=== PATIENT | male | born 1980 | race Caucasian/White ===

== ENCOUNTER 2016-06-05 06:37 | Day surgery (SDC) | payer OTHER ==
[2016-06-05] VITALS (10 sets, daily range): BP systolic 103–148; BP diastolic 64–95; PULSE 70–93; RESP 12–21; O2SAT 95–100
[~2016-06-05] VITALS: Ht 188 cm; Wt 127.6 kg
[~2016-06-05 06:37] MED LIST: CeFAZolin Inj 3 GM in IV Premix IV ONE; IBUP800T28 PO; Lactated Ringer's 1,000 ML IV SCH; MULT-1018 PO
[2016-06-05] MEDS ORDERED: MetoCLOpramide 5 mg/mL 2 mL Inj ONE (06:38)
[2016-06-05] MEDS ORDERED: Dexamethasone 4 mg/mL Inj ONE (06:38)
[2016-06-05] MEDS ORDERED: Ondansetron 2 mg/mL 2 mL Inj ONE (06:38)
[2016-06-05] MEDS ORDERED: Propofol 10,000 mCg/mL 20 mL Inj ONE (06:38)
[2016-06-05] MEDS ORDERED: Lactated Ringer's 1,000 ML IV ONE (07:05)
--- NOTE | 2016-06-05 08:15 | PCM.HPANE ---
Patient Data Surgeon Admitting Provider: Attending Provider:Eddie Bell MD Primary Care Physician:Miguelina Other Provider:David Irizarry Anesthesia Reason for Visit Right Knee Lateral Meniscus Tear Ht/WT & BMI Height (Feet): 6 Height (Inches): 2.00 Weight (Kilograms): 127.6 Body Mass Index 36.00 Allergies Coded Allergies: No Known Allergies (Unverified , 06/03/16) Past Anesthesia History Anesthesia History: Denies:: Abnormal Airway, Anesthesia Reactions, Difficult Intubation, Fam Anesthesia Reaction Diabetes History Hx Diabetes?: No MRSA MRSA: No Medications Hypertension Medication: No Home Meds Incl Beta Michelle: No Reported Medications Multivitamin (Multi Vitamin Daily)1 Each Tablet1 Each PO DAILY 30 Days Ref 0 06/03/16 Ibuprofen 800 Mg [id number] Mg PO TID PRN For Pain Ref 0 06/03/16 History HEENT History: Denies:: Abnormal Airway Cataracts Difficult Intubation Dysphagia Glaucoma Hearing Problem Sinus Problem TMJ Cardiovascular History: Denies:: AICD Abdominal Aortic Aneurism Atrial Fibrillation Cardiac Surgery Chest Pain Congestive Heart Failure Coronary Artery Disease Edema Heart Murmur Hypertension Irregular Heartbeat Pacemaker Peripheral Vascular Rheumatic Fever Thrombophlebitis Hx of Respiratory Problem?: No Respiratory History: Denies:: Asthma COPD Emphysema Oxygen Administration Pneumonia Tuberculosis Use of C-PAP Machine Use of Inhalers / NEBS Hx Neurologic Problems?: No Neurological History: Denies:: CVA Dementia Dizziness Headaches Multiple Sclerosis Parkinson's Disease Seizures TIA Hx of GI Problems?: No Gastrointestinal History: Denies:: Cirrhosis Diverticulitis Gall Bladder Disease Gastroesphageal Reflux Gastrointestinal Bleeding Heartburn Hepatitis Hiatal Hernia Liver Disease Rectal Bleeding Hx of Problems?: No Genitourinary History: Denies:: Kidney Stones Urinary Tract Infection Male Hx: Denies:: Prostate Problems Scrotal Mass Testicular Surgery Skin History: Positive for:: History Skin Disorders? (cut on left thumb- scabbed and healing- bad cut ) Denies:: Pressure Ulcers Hx Musculoskeletal Problems?: Yes Musculoskeletal History: Positive for:: Musculoskeletal Trauma (right knee current admission problem) Denies:: Back Injury Degenerative Joint Fibromyalgia Osteoarthritis Rheumatoid Arthritis Hx of Psycho/Social Problems?: No Psycho Social History: Denies:: Anxiety Hx Depression Hx Surgeries?: Yes (hernia as child) Hx Any Other Health Problems?: Yes Other History: Denies:: Cancer Thyroid Disease History Blood Transfusions: Positive for:: Accept Blood Products? Denies:: Blood Transfusions Hx Diabetes: No Hx Alcohol Use: YesAlcoholic Drinks Per Day: one drink dailyHx Substance Use: Yes (marijuana inhalant, daily)Have You Smoked inLast 12 mo: Yes Stop/Bang Treated for Sleep Apnea?: No Do You Have a CPAP Machine?: No S-Snoring: Do You Snore Loudly: No T-Tired: feel tired, fatigued: No O-Obsered: Observed not breath: No P-Blood Pressure: treated: No B- Body Mass Index > 35 kg/m2: Yes A- Age over 50: No N- Neck Large Circumference: No G- Gender Male: Yes NEDA Total Score: 2 NEDA Risk Assessment: Low Risk, <3 Yes Risk Assessment Category Category 1A: Patient has history of documented sleep apnea, and HAS NOT received any narcotic, sedative or anesthesia administration during this stay. Category 1B: Patient has history of documented sleep apnea, and HAS received any narcotic , sedative or anesthesia administration during this stay Category 2: Patient has SUSPECTED Obstructive Sleep Apnea, and HAS received any narcotic , sedative or anesthesia administration during this stay. Category 3: Patient has SUSPECTED Obstructive Sleep Apnea and HAS NOT received narcotic, sedative or anesthesia administration during this stay. Category 4: Outpatient in Procedural Areas with known sleep apnea or who screen positive for High Risk via the STOP/BANG questionnaire. Exam Exam Vital Signs Vital Signs Date Time Temp Pulse Resp B/P Pulse Ox O2 Delivery O2 Flow Rate FiO2 06/05/16 07:12 35.8 77 17 142/74 97 Room Air General Appearance: Oriented X3 HEENT/AIRWAY: MP 2 Lungs: Normal Air Movement Heart: Regular Rate/Rhythm Meds/Labs/Diagnostics Admission Meds Current Medications Lactated Ringer's (Lr) 1,000 ml @ ud STK-MED ONCE IV Last administered on 06/05 07:05; Start 06/05/16 at 07:05; Stop 06/05/16 at 07:06; Status DC Lidocaine HCl (Xylocaine 1% Inj) 20 ml STK-MED ONCE INJ Last administered on 07:50; Start 06/05/16 at 07:50; Stop 06/05/16 at 08:08; Status DC Ropivacaine (Naropin 0.5% Inj) 30 ml STK-MED ONCE INFILTRATE Last administered on 06/05/16t 07:50; Start 06/05/16 at 07:50; Stop 06/05/16 at 08:08; Status DC Plan Impression Patient chart reviewed, patient interviewed and anesthestic plan with risks, benefits, and alternatives discussed, and informed consent obtained. NPO Status: 06/04@2300 ASA Physical Status: ASA2 Mod Systemic Disease Anesthetic Plan: GA Bene/Risks/Altern/Consents: Yes HP Complete Prior to Induction: Yes Crow Yanez MD Jun 05, 2016 08:15
[2016-06-05] MEDS ORDERED: Lactated Ringer's 500 ML IV PRN (08:43)
[2016-06-05] MEDS ORDERED: Lactated Ringer's 1,000 ML IV SCH (08:43)
[2016-06-05] MEDS ORDERED: Ondansetron 2 mg/mL 2 mL Inj IVPUSH PRN (08:45)
[2016-06-05] MEDS ORDERED: Dexamethasone 4 mg/mL Inj IVPUSH PRN (08:45)
[2016-06-05] MEDS ORDERED: HYDROmorphone 1 mg/mL Inj IVPUSH PRN (08:45)
[2016-06-05] MEDS ORDERED: Phenylephrine 10,000 mCg/mL Inj IVPUSH PRN (08:45)
[2016-06-05] MEDS ORDERED: EPHEDrine Sulfate 50 mg/mL Inj IVPUSH PRN (08:45)
[2016-06-05] MEDS ORDERED: MetoCLOpramide 5 mg/mL 2 mL Inj IVPUSH PRN (08:45)
[2016-06-05] MEDS ORDERED: Ropivacaine-PF 0.5% 30 mL Inj INFILTRATE ONE (08:55)
[2016-06-05] MEDS ORDERED: HYDROcodone-APAP 5-325 mg Tablet PO PRN (09:20)
[2016-06-05] MEDS ORDERED: Ketorolac 15 mg/mL Inj IVPUSH ONE (09:20)
--- NOTE | 2016-06-05 09:23 | PCM.ORTHOP ---
Orthopedic Operative Report Date of Service: Jun 05, 2016 Pre Operative Diagnosis right knee meniscus tear Post Operative Diagnosis same Procedure Right right knee arthroscopy, partial meniscectomy, chondroplasty, partial synovectomy Surgeon Surgeon: Eddie Bell MD Assistants: None Indication for Procedure Right knee lateral meniscus tear Findings per Dictation Details of Procedure - right knee arthroscopy, -right knee, partial lateral meniscectomy -right knee, chondroplasty -right knee, partial synovectomy INDICATIONS: Jeanmarie Luna is a 36-year-old male lateral who has had a history of right knee pain. The patient has failed conservative management. 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 MRI was obtained which reveals a lateral meniscus tear. The patient has had persistent symptoms and is now brought to the operating room for arthroscopy. The risks, benefits, and alternatives of surgery were discussed with the patient. The risks included but were not limited to infection, bleeding, damage to vessels and nerves, loss of motion, continued pain, re-tear of the meniscus, deep venous thrombosis, and complications due to anesthesia including nerve injury, myocardial infarction, stroke, , etc. The patient stated understanding of the nature of the surgical procedure and gave written and verbal consent to proceed. PROCEDURE: The patient was brought to the operating room and placed supine on the operating room table. After the administration of general anesthesia the patient was placed in the supine position. Examination of the knee revealed no evident instability with a trace effusion. All prominences were padded with appropriately and neurovascular structures protected. The right knee was confirmed to be the appropriate site following surgical time out. The right lower extremity was examined under anesthesia. Range of motion was 0-135 degrees. There was no varus or valgus or anterior or posterior instability. The right lower extremity was then prepped and draped in the usual fashion. Sterile prep and drape was then undertaken of the knee. The knee joint was injected with 20 ccs of 1% Lidocaine, along with 3 ccs of 1 % lidocaine in the medial and lateral portal sites respectively. A standard anterolateral parapatellar stab wound was created. The knee joint was entered with a blunt- tipped obturator, followed by the 30-degree video arthroscope. An anteromedial portal was established under arthroscopic control. A routine arthroscopic survey was performed. 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 The medial joint space was then entered. The articular surfaces showed grade 2 chondromalacia. Medial meniscus showed some slight fraying but was stable and did not need debridement. The ACL and PCL were noted to be intact. The lateral joint space was then entered. The articular surfaces were intact with grade 2/3 chondromalacia. There was a degenerative flap tear to the posterior aspect of the lateral meniscus. A combination of the shaver and cutting instruments were then inserted and a debridement of this tissue down to stable tissue was undertaken. Moderate synovitis was noted anteriorly in the medial and lateral compartment and debrided with a shaver. The knee was irrigated with an additional 2 liters of lactated Ringer's solution. Excess fluid was drained. The portals were closed with 3-0 nylon as well as xeroform. The knee was injected with 20 mL of 0.5% ropivacaine. A dry sterile dressing was applied, followed by an ISAAK hose, soft roll, and GENEVIEVE bandage. The patient was awakened in the operating room and transported to the recovery room in satisfactory condition. The patient appeared to tolerate the procedure well. At the completion of surgery the patient had soft compartments , palpable pulses, and brisk capillary refill. There were no complications noted. Grafts, Implants: Implants-See Implant Record Complications There were no periprocedural complications identified. Condition Stable Anesthetic Administered: GA Catheters: None Output, Estimated Blood Loss: 5 Blood Admin during surgery: No Surgical Cast or Splint: Other Surgical Specimen Removed: No Specimen sent to Pathology: No copies to: Eddie Bell MD, Christopher L MD Jun 05, 2016 09:23
[2016-06-05] MEDS: fentaNYL-PF 50 mCg/mL 2 mL Inj IVPUSH PRN ×2 (09:39→09:45)
--- NOTE | 2016-06-05 10:02 | PCM.ANEP2 ---
Post Anesthesia Evaluation ASA/CMS Post Anesthesia VS in Patient's Normal Range?: Yes Resp Stable; Airway Patent?: Yes CV Function & Hydration Stable: Yes Mental Status Recovered?: Yes Pain control Satisfactory?: Yes N/V Control Satisfactory?: Yes Crow Yanez MD Jun 05, 2016 10:02
--- NOTE | 2016-06-05 10:02 | PCM.ANEP1 ---
Post Anesthesia Phase 1 PACU Phase 1 Assessment Date of Service: Jun 05, 2016 Vital Signs Vital Signs Date Time Temp Pulse Resp B/P Pulse Ox O2 Delivery O2 Flow Rate FiO2 06/05/16 09:48 70 14 144/90 95 Room Air 06/05/16 09:40 80 17 130/91 99 Room Air 06/05/16 09:36 88 21 141/95 100 Room Air 06/05/16 09:30 88 12 142/95 100 Room Air 06/05/16 09:25 90 16 138/86 98 Room Air 06/05/16 09:20 77 16 123/81 100 Simple Mask 10 06/05/16 09:15 36.1 93 16 103/64 100 Simple Mask 10 06/05/16 07:12 35.8 77 17 142/74 97 Room Air Anesthetic Administered: GA Level of Alertness: Awake, talking Pain: No Nausea or Vomiting: No Oxygen Delivery: Room Air Lungs: Normal Air Movement Crow Yanez MD Jun 05, 2016 10:02
== END 2016-06-05 23:59 | disposition home or self-care (01) ==
LOC: SAS 06:37
PROVIDERS: ATTEND Orthopaedic Surgery
DX: M23.251 Derangement of posterior horn of lateral meniscus due to old tear or injury, right knee (principal); M94.261 Chondromalacia, right knee; F17.210 Nicotine dependence, cigarettes, uncomplicated
CPT/HCPCS: 29881; J0690; J1100; J2405; J2765; J2795; J3010; J7120